=== PATIENT | female | born 1975 | race Caucasian/White ===

== ENCOUNTER 2016-08-10 22:03 | Emergency (ER) | payer OTHER ==
--- NOTE | 2016-08-10 22:06 | UCPHY ---
H & P Patient Type: Established HPI/ROS: HPI CHIEF COMPLAINT: Left arm insect bite possible infection HISTORY OF PRESENT ILLNESS: Patient very pleasant 41-year-old female no significant medical history except for asthma, she was at [facility] week ago she had multiple insect bites including mosquito bites, yesterday she developed a bite on the left dorsal forearm that became blister to head with some drainage. She did unroof the blister head with a sewing needle. She was able to get yellow purulent drainage from that. She had some mild redness to her left forearm this has improved. No fever. No significant pain. no other lesions. Past Medical History: Significant medical history except for asthma Past Surgical History: Denies recent surgical history Social History: Denies daily use of drugs alcohol tobacco products Family History: Noncontributory ROS REVIEW OF SYSTEMS: A comprehensive 10 point review of systems is otherwise negative aside from elements mentioned in the history of present illness. Exam Constitutional triage nursing summary reviewed, vital signs reviewed, awake/ alert. Eyes normal conjunctivae and sclera, EOMI, PERRLA. HENT normal inspection, atraumatic, moist mucus membranes, no epistaxis, neck supple/ no meningismus, no raccoon eyes. Respiratory clear to auscultation bilaterally, normal breath sounds, no respiratory distress, no wheezing. Cardiovascular rate normal, regular rhythm, no murmur, no edema, distal pulses normal. Gastrointestinal soft, non-tender, no rebound, no guarding, normal bowel sounds, no distension, no pulsatile mass. Genitourinary no CVA tenderness. Musculoskeletal no midline vertebral tenderness, full range of motion, no calf swelling, no tenderness of extremities, no meningismus, good pulses, neurovascularly intact. Skin left dorsal forearm, 1 cm x 1 cm area pustular head, draining, yellow drainage, no significant induration, no significant cellulitis seen, pink, warm , & dry, no rash. Neurologic awake, alert and oriented x 3, AAOx3, moves all 4 extremities equally, motor intact, sensory intact, CN II-XII intact, normal cerebellar, normal vision, normal speech. Psychiatric normal mood/affect. Heme/Lymph/Immune no lymphadenopathy. Differential Diagnosis: Includes but is not limited to in a particular order, insect bite reaction, localized reaction, localized cellulitis, abscess Medical Decision Making: plan for this patient warm compresses 3 to 4 times a day, antibiotic Keflex. Watch closely return to the urgent care or emergency room this is worse. Including worsening swelling, redness, drainage. At this time she appears well nontoxic minimal area of infection. Source: Patient - Personal History Tetanus Vaccine Date: 2009 - Medical/Surgical History Hx Asthma: No Hx Chronic Respiratory Disease: No Hx Diabetes: No Hx Cardiac Disease: No Hx Renal Disease: No Hx Cirrhosis: No Hx Alcoholism: No Hx HIV/AIDS: No Hx Splenectomy or Spleen Trauma: No Other PMH: asthma - Family History Significant Family History: No pertinent family hx - Social History Smoking Status: Never smoked Constitutional: Initial Vital Signs Temperature (C) 36.6 C 08/10/16 22:09 Heart Rate 70 08/10/16 22:09 Respiratory Rate 16 08/10/16 22:09 Blood Pressure 103/84 H 08/10/16 22:09 O2 Sat (%) 95 08/10/16 22:09 O2 Delivery Mode Room Air Allergies/Adverse Reactions: No Known Allergies Allergy (Verified 08/10/16 22:12) Home Medications: Medication Instructions Recorded Advair 04/02/13 Cephalexin [Keflex (*)] 500 mg PO Q6H #28 cap 08/10/16 Nasonex 08/10/16 Zyrtec 08/10/16 Departure - Departure Disposition: Home, Routine, Self-Care Clinical Impression: Insect bite Qualifiers: Encounter type: initial encounter Qualified Code(s): W57.XXXA - Bitten or stung by nonvenomous insect and other nonvenomous arthropods, initial encounter Cellulitis Qualifiers: Site of cellulitis: unspecified site Qualified Code(s): L03.90 - Cellulitis, unspecified Condition: Good Instructions: Insect Bite or Sting (ED), Cellulitis (ED) Additional Instructions: 1. use warm compresses 2-3 times per day. 2. take antibiotic as prescribed. 3. return to the urgent care or emergency room if there is any worsening symptoms includes worsening pain, redness, swelling, spreading redness fever or questions or concerns about her wound. Referrals: Fina Sullivan MD [Primary Care Provider] - As per Instructions Prescriptions: Cephalexin [Keflex (*)] 500 mg PO Q6H #28 cap - PQRS PQRS Measurement: n/a
[2016-08-10 22:13] VITALS: BP 103/84; PULSE 70; RESP 16; TEMP 97.9; O2SAT 95
[2016-08-10] MEDS ORDERED: CEPHALEXIN 500 MG CAP PO ONE (22:18)
== END 2016-08-10 22:26 | disposition home or self-care (01) ==
LOC: CED 22:03
DX: S50.862A Insect bite (nonvenomous) of left forearm, initial encounter (principal); L03.90 Cellulitis, unspecified; J45.909 Unspecified asthma, uncomplicated; W57.XXXA Bitten or stung by nonvenomous insect and other nonvenomous arthropods, initial encounter
CPT/HCPCS: 99214-PO; G0463-PO

== ENCOUNTER → 2017-05-12 | Outpatient (CLI) | payer OTHER | LOC: FIMAGING 15:28 | PROVIDERS: ATTEND Internal Medicine | DX: Z12.31 Encounter for screening mammogram for malignant neoplasm of breast (principal); Z80.3 Family history of malignant neoplasm of breast ==